=== PATIENT | female | born 1965 | race Caucasian/White ===

== ENCOUNTER → 2016-12-14 | Outpatient (CLI) | payer MEDICAID ==
--- NOTE | 2016-12-14 15:54 | US ---
EXAMINATION TYPE: US thyroid st tissue head/neck DATE OF EXAM: 12/14/2016 COMPARISON: NONE CLINICAL HISTORY: E04.1 Nodule. Patient states that during dentist exam, felt left palp. Labs are nor mal. GLAND SIZE: Right Lobe: 4.2 x 1.5 x 1.1 cm Overall Parenchyma: homogenous Left Lobe: 4.0 x 1.6 x 1.1 cm Overall Parenchyma: homogeneous Isthmus Thickness: 0.3 cm NODULES RIGHT: # of nodules measured on right: 1 1. 0.3 X 0.3 x 0.2 cm hypoechoic nodule at the lower pole with well-defined margins. This nodule i s taller than wide and shows . Prior size: No prior LEFT: # of nodules measured on left: 0 ISTHMUS: # of nodules measured in the isthmus: 0 Bilateral neck scanned, no evidence of lymphadenopathy. Hypoechoic oval lesion seen lateral to right CCA = 1.3 x 1.0 x 0.4 cm IMPRESSION: 1. Probable lymph node at the palpable region lateral to the right common carotid artery. Follow-up c an be performed. 2. Normal thyroid
== END | disposition home or self-care (01) ==
LOC: RADUSWWP 09:37
PROVIDERS: ATTEND Family Medicine
DX: E04.1 Nontoxic single thyroid nodule (principal)
CPT/HCPCS: 76536

== ENCOUNTER → 2017-07-29 | Outpatient (CLI) | payer MEDICAID ==
--- NOTE | 2017-07-29 11:58 | US ---
EXAMINATION TYPE: US thyroid st tissue head/neck DATE OF EXAM: 07/29/2017 COMPARISON: Prior thyroid ultrasound report December 14, 2016 CLINICAL HISTORY: E04.1 Thyroid nodule,. follow up from previous, lymph nodes felt GLAND SIZE: Right Lobe: 4.1 x 1.1 x 1.5 cm Overall Parenchyma: homogenous Left Lobe: 3.3 x 1.3 x 1.3 cm Overall Parenchyma: homogeneous Isthmus Thickness: 0.3 cm NODULES RIGHT: # of nodules measured on right: 1 1. 0.4 X 0.2 x 0.3 cm cystic nodule at the lower pole with well-defined margins. This nodule is wi arnulfo than tall and shows no intranodular vascularity. Prior size: 0.3 x 0.3 x 0.2 cm LEFT: # of nodules measured on left: 0 ISTHMUS: # of nodules measured in the isthmus: 0 Bilateral neck scanned, no evidence of lymphadenopathy. Prominent lymph nodes felt on the right. Patient states she always feels them for years. 3 sit right next to each other in lateral right neck with largest dimension of 1.3cm Technologist lozoya subcentimeter oval hypoechoic lesion probable lymph node right neck on initial hadley ges. Similar finding described in prior report. IMPRESSION: Thyroid gland remains normal in size and homogeneous in echotexture with stable tiny right thyroid no dule, no new greater than 1 cm solid or cystic nodules are seen.
--- NOTE | 2017-08-01 10:04 | MM ---
Reason for exam: screening (asymptomatic). Last mammogram was performed 1 year and 3 months ago. History: Patient is postmenopausal. Physical Findings: A clinical breast exam by your physician is recommended on an annual basis and results should be correlated with mammographic findings. MG 3D Screening Mammo W/Cad Bilateral CC and MLO view(s) were taken. Prior study comparison: May 07, 2016, bilateral MG 3d screening mammo w/cad. April 19, 2014, bilateral MG screening mammo w CAD. There are scattered fibroglandular densities. Finding: There are typically benign round, grouped/clustered and regional calcifications in both breasts. There is no discrete abnormality. ASSESSMENT: Benign, BI-RAD 2 RECOMMENDATION: Routine screening mammogram of both breasts in 1 year.
== END | disposition home or self-care (01) ==
LOC: RADUSWWP 08:15
PROVIDERS: ATTEND Family Medicine
DX: Z12.31 Encounter for screening mammogram for malignant neoplasm of breast (principal); E04.1 Nontoxic single thyroid nodule
CPT/HCPCS: 76536; 77063; 77067

== ENCOUNTER → 2017-11-02 | Outpatient (CLI) | payer MEDICAID ==
--- NOTE | 2017-11-02 21:36 | XR ---
EXAMINATION TYPE: XR lumbosacral spine min 4V DATE OF EXAM: 11/02/2017 COMPARISON: NONE HISTORY: 51-year-old female with lumbar pain more towards the right TECHNIQUE: 5 views FINDINGS: No pars interarticularis defect. Mild to moderate disc interspace narrowing at L3-L4, L4-L5, and L5- S1 with corresponding endplate spondylosis. Hypertrophic facet arthropathy throughout especially the lower lumbar spine. There is trace grade 1 retrolisthesis at L3-L4. Vertebral body heights are mainta ined. IMPRESSION: 1. No vertebral compression collapse. 2. Hypertrophic facet arthropathy especially in the lower lumbar spine with trace grade 1 retrolisthe sis at L3-L4. 3. Mild to moderate degenerative disc disease.
== END | disposition home or self-care (01) ==
LOC: RADXRMAIN 11:34
PROVIDERS: ATTEND Family Medicine
DX: M51.37 Other intervertebral disc degeneration, lumbosacral region (principal); M46.96 Unspecified inflammatory spondylopathy, lumbar region
CPT/HCPCS: 72110

== ENCOUNTER → 2017-11-29 | Outpatient (CLI) | payer MEDICAID ==
--- NOTE | 2017-11-29 12:38 | ECHOF ---
Referral Reason:Chest pain MEASUREMENTS -------- HEIGHT: 165.1 cm WEIGHT: 103.0 kg BP: IVSd: 1.3 cm (0.6 - 1.1) LVIDd: 3.5 cm (3.9 - 5.3) LVPWd: 1.1 cm (0.6 - 1.1) IVSs: 1.6 cm LVIDs: 1.9 cm LVPWs: 1.8 cm Ao Diam: 2.9 cm (2.0 - 3.7) AV Cusp: 1.7 cm (1.5 - 2.6) LA Diam: 2.5 cm (2.7 - 3.8) MV EXCURSION: 16.659 mm (> 18.000) MV EF SLOPE: 109 mm/s (70 - 150) EPSS: 1.0 cm MV E Tony: 0.98 m/s MV DecT: 183 ms MV A Tony: 0.63 m/s MV E/A Ratio: 1.56 RAP: 5.00 mmHg RVSP: 14.41 mmHg FINDINGS -------- Sinus rhythm. This was a technically good study. The left ventricular size is normal. There is borderline concentric left ventricular hypertrophy. Overall left ventricular systolic function is normal with, an EF between 55 - 60 %. The right ventricle is normal in size and function. The left atrium is normal in size. The right atrium is normal in size. The aortic valve is trileaflet, and appears structurally normal. No aortic stenosis or regurgitation. The mitral valve leaflets are mildly thickened. Mild mitral regurgitation is present. Mild tricuspid regurgitation present. The right ventricular systolic pressure, as measured by Doppl er, is 14.41mmHg. Pulmonic valve appears structurally normal. The aortic root size is normal. The pericardium is normal. CONCLUSIONS -------- 1. Sinus rhythm. 2. This was a technically good study. 3. The left ventricular size is normal. 4. There is borderline concentric left ventricular hypertrophy. 5. Overall left ventricular systolic function is normal with, an EF between 55 - 60 %. 6. The right ventricle is normal in size and function. 7. The left atrium is normal in size. 8. The right atrium is normal in size. 9. The aortic valve is trileaflet, and appears structurally normal. No aortic stenosis or regurgitati on. 10. The mitral valve leaflets are mildly thickened. 11. Mild mitral regurgitation is present. 12. Mild tricuspid regurgitation present. 13. The right ventricular systolic pressure, as measured by Doppler, is 14.41mmHg. 14. Pulmonic valve appears structurally normal. 15. The aortic root size is normal. 16. The pericardium is normal. PEELER OPERATOR: Hannah Judd RDCS
--- NOTE | 2017-11-29 12:49 | ECHOS ---
STRESS ECHOCARDIOGRAM DATE OF SERVICE: 11/29/2017 INDICATIONS: Chest pain. MEDICATIONS: BASELINE HEART RATE: 73 BASELINE BLOOD PRESSURE: 140/72 MAXIMUM HEART RATE: 160 MAXIMUM BLOOD PRESSURE: 211/106 85% MPHR: 143 100% MPHR: 168 METS: 7 MAXIMUM STAGE REACHED: II TOTAL EXERCISE TIME: 6 minutes CLINICAL INFORMATION: Baseline EKG shows sinus rhythm, normal axis, normal intervals. Patient exercised on Aston protocol for a total of 6 minutes, achieving 7 METs, 95% of predicted maximal heart rate without chest pain or diagnostic ST-segment depression. Baseline echo shows normal left ventricular size, wall motion, systolic function. Postexercise, there is normal hyperdynamic response of all segments of myocardium noted. CONCLUSIONS: 1. Limited exercise tolerance. 2. Negative stress test by EKG criteria. 3. Negative stress echo. MMODL / IJN: [id number] /
== END | disposition home or self-care (01) ==
LOC: RADNMMAIN 09:22
PROVIDERS: ATTEND Internal Medicine Interventional Cardiology
DX: R07.9 Chest pain, unspecified (principal)
CPT/HCPCS: 93306; 93351

== ENCOUNTER → 2018-02-07 | Outpatient (CLI) | payer MEDICAID ==
--- NOTE | 2018-02-07 14:56 | US ---
EXAMINATION TYPE: US thyroid st tissue head/neck DATE OF EXAM: 02/07/2018 COMPARISON: US CLINICAL HISTORY: E04.1 thyroid nodule. F/U GLAND SIZE: Right Lobe: 4.4 x 1.5 x 1.7 cm Overall Parenchyma: homogenous Left Lobe: 4.1 x 1.0 x 1.4 cm Overall Parenchyma: homogeneous Isthmus Thickness: 0.4 cm NODULES RIGHT: # of nodules measured on right: 1 1. 0.3 X 0.2 x 0.3 cm hypoechoic nodule at the lower pole with well-defined margins; This nodule i s wider than tall and shows no intranodular vascularity. Prior size: 0.4 x 0.2 x 0.3 cm Bilateral neck scanned, no evidence of lymphadenopathy. Probable lymph node right lateral neck as see n on previous exams, unchanged with largest measurement at 1.3cm. Unchanged thyroid nodule on right. IMPRESSION: 1. Subcentimeter right lobe thyroid nodule. 2. Right neck lymphadenopathy, stable.
== END ==
LOC: RADUSWWP 07:27
PROVIDERS: ATTEND Family Medicine
DX: E04.1 Nontoxic single thyroid nodule (principal); R59.0 Localized enlarged lymph nodes
CPT/HCPCS: 76536

== ENCOUNTER → 2018-02-24 | Outpatient (CLI) | payer MEDICAID ==
--- NOTE | 2018-02-24 19:59 | MR ---
EXAMINATION TYPE: MR lspine/sacrum wo con DATE OF EXAM: 02/24/2018 COMPARISON: Plain film 11/02/2017, prior lumbar MRI 10/21/2011 HISTORY: Low back pain / Foot drop TECHNIQUE: Multiplanar, multisequence imaging of the lumbar spine is performed without IV contrast. FINDINGS: Using the number scheme of the prior exams, the lumbosacral juncture is marked at L5-S1, th ere are however 6 nonrib-bearing lumbar segments. Correlate with plain film prior to any intervention . Sagittal images of the lumbar spine show vertebral body heights and alignment to appear satisfactory. The intervertebral discs demonstrate normal heights and hydration. The conus medullaris is normal i n position and signal. The bone marrow signal intensity is within normal limits. Axial images show no significant interval change. There is no significant foraminal encroachment or s ignificant spinal stenosis. There is multilevel facet arthropathy as on prior exam. Broad-based poste rior disc bulges are stable. There is a mild spinal curvature. Hemangiomas are present in multiple ve rtebral bodies. IMPRESSION: Stable mild degenerative disc disease. Additional findings above. Multilevel facet arthro tani greatest at the lumbosacral junction and level immediately cephalad.. Correlate with plain film prior to any intervention.
== END | disposition home or self-care (01) ==
LOC: RADMRIMAIN 06:04
PROVIDERS: ATTEND Family Medicine
DX: M51.27 Other intervertebral disc displacement, lumbosacral region (principal); M51.37 Other intervertebral disc degeneration, lumbosacral region; M48.8X7 Other specified spondylopathies, lumbosacral region; D18.09 Hemangioma of other sites
CPT/HCPCS: 72148; 72195

== ENCOUNTER → 2018-02-25 | Outpatient (CLI) | payer MEDICAID ==
--- NOTE | 2018-02-25 14:46 | MR ---
EXAMINATION TYPE: MR cervical spine wo con DATE OF EXAM: 02/25/2018 COMPARISON: Previous cervical MRI dated 11/06/2010 HISTORY: Neck pain, stiffness, hx fall/disc herniation TECHNIQUE: Multiplanar, multisequence images of the cervical spine were acquired. C2-C3: No evidence for degenerative disc disease. No disc bulge/herniation or protrusion. No Canal stenosis. Foramina are patent bilaterally. C3-C4: Posterior extension endplate disc complex causes minimal anterior mass effect on the thecal sa c. Lateral extension causes some minimal foraminal encroachment, no significant spinal stenosis. C4-C5: Posterior extension of endplate disc complex causes minimal anterior mass effect on the thecal sac, small central posterior disc protrusion is noted. Lateral extension of endplate disc complex en croaches minimally on the foramina. C5-C6: Posterior extension of endplate disc complex causes mild anterior mass effect on the thecal sa c, no significant central stenosis. Lateral extension of endplate disc complex causes foraminal encro achment bilaterally. C6-C7: Small posterior disc bulge causes slight anterior mass effect on the thecal sac. No significan t foraminal encroachment. C7-T1: No evidence for degenerative disc disease. No disc bulge/herniation or protrusion. No Canal stenosis. Foramina are patent bilaterally. Cervical segments are intact. There is normal alignment. Cervical spinal cord is of normal signal. Craniovertebral junction relationships are within normal limits. Findings are similar to prior exam . There is mild spondylosis and endplate discogenic marrow signal change, loss of disc height and sig nal at intervertebral levels is compatible with disc desiccation and degenerative disc disease. IMPRESSION: Mild degenerative disc disease similar to prior exam.
== END | disposition home or self-care (01) ==
LOC: RADMRIMAIN 12:41
PROVIDERS: ATTEND Family Medicine
DX: M50.30 Other cervical disc degeneration, unspecified cervical region (principal)
CPT/HCPCS: 72141

== ENCOUNTER 2018-08-01 10:00 | Emergency (ER) | payer MEDICAID, OTHER ==
[2018-08-01 10:11] VITALS: BP 162/84; PULSE 81; RESP 18; TEMP 98.1
[2018-08-01] MEDS ORDERED: ACETAMINOPHEN TAB 325 MG TAB PO STA (10:49)
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
== END 2018-08-01 11:42 | disposition home or self-care (01) ==
LOC: EC 10:00
DX: M54.2 Cervicalgia (principal); K21.9 Gastro-esophageal reflux disease without esophagitis; Z79.899 Other long term (current) drug therapy; Z88.6 Allergy status to analgesic agent; Z87.891 Personal history of nicotine dependence; Y04.0XXA Assault by unarmed brawl or fight, initial encounter; Y92.69 Other specified industrial and construction area as the place of occurrence of the external cause; Y99.0 Civilian activity done for income or pay
CPT/HCPCS: 72125; 99284

== ENCOUNTER → 2018-08-14 | Outpatient (CLI) | payer MEDICAID ==
--- NOTE | 2018-08-15 10:34 | MM ---
Reason for exam: screening (asymptomatic). Last mammogram was performed 1 year and 1 month ago. History: Patient is postmenopausal. Physical Findings: A clinical breast exam by your physician is recommended on an annual basis and results should be correlated with mammographic findings. MG 3D Screening Mammo W/Cad Bilateral CC and MLO view(s) were taken. Prior study comparison: July 29, 2017, bilateral MG 3d screening mammo w/cad. May 07, 2016, bilateral MG 3d screening mammo w/cad. The breast tissue is heterogeneously dense. This may lower the sensitivity of mammography. There are benign appearing round calcifications bilaterally. There is no discrete abnormality. ASSESSMENT: Benign, BI-RAD 2 RECOMMENDATION: Routine screening mammogram of both breasts in 1 year. Manage on a clinical basis with regard to left itchy breast.
== END | disposition home or self-care (01) ==
LOC: RADMAMWWP 09:26
PROVIDERS: ATTEND Family Medicine
DX: Z12.31 Encounter for screening mammogram for malignant neoplasm of breast (principal)
CPT/HCPCS: 77063; 77067

== ENCOUNTER → 2020-01-10 | Outpatient (CLI) | payer MEDICAID ==
--- NOTE | 2020-01-10 13:46 | MM ---
Reason for exam: screening (asymptomatic). Last mammogram was performed 1 year and 5 months ago. History: Patient is postmenopausal. Physical Findings: A clinical breast exam by your physician is recommended on an annual basis and results should be correlated with mammographic findings. MG 3D Screening Mammo W/Cad Bilateral CC and MLO view(s) were taken. Prior study comparison: August 14, 2018, bilateral MG 3d screening mammo w/cad. July 29, 2017, bilateral MG 3d screening mammo w/cad. There are scattered fibroglandular densities. There is no discrete abnormality. No significant changes when compared with prior studies. ASSESSMENT: Negative, BI-RAD 1 RECOMMENDATION: Routine screening mammogram of both breasts in 1 year.
== END | disposition home or self-care (01) ==
LOC: RADMAMWWP 07:54
PROVIDERS: ATTEND Family Medicine
DX: Z12.31 Encounter for screening mammogram for malignant neoplasm of breast (principal)
CPT/HCPCS: 77063; 77067

== ENCOUNTER 2020-07-20 15:02 | Observation (INO) | payer MEDICAID ==
[2020-07-20] MEDS ORDERED: ONDANSETRON 4 MG/2 ML VIAL IVP STA (15:38)
--- NOTE | 2020-07-20 16:01 | ED ---
Chest Pain HPI - General Chief Complaint: Chest Pain Stated Complaint: Chest Pain Time Seen by Provider: 07/20/20 15:20 Source: patient Mode of arrival: wheelchair Limitations: no limitations - History of Present Illness Initial Comments: This patient is a 54-year-old woman presenting to be evaluated for a constellation of symptoms that came on this afternoon. The patient relates that approximately 2-3 hours ago, while she was sitting on her couch playing in computer game, she noticed that she was becoming nauseated. She then also started to experience some substernal chest pain. When this did not resolve promptly she came to be evaluated. There was no dyspnea, diaphoresis, palpitations or other anginal type symptoms. MD Complaint: chest pain Onset/Timin -: hour(s) Onset: during rest Pain Location: substernal Pain Radiation: none Severity: mild Quality: dull Consistency: constant Improves With: nothing Worsens With: nothing Anginal Symptoms: nausea Treatments Prior to Arrival: none - Related Data Home Medications Medication Instructions Recorded Confirmed Famotidine 40 mg PO 04/20/16 08/01/18 Loratadine [Claritin] 10 mg PO 04/20/16 08/01/18 Magnesium Oxide [Gray] 500 mg PO HS 11/26/17 08/01/18 Milk Thistle 1000mg 1,000 mg PO 11/26/17 08/01/18 Potassium 99 mg PO 11/26/17 08/01/18 Cholecalciferol [Vitamin D3] 5,000 unit PO Q48H 08/01/18 08/01/18 Docusate [Colace] 200 mg PO 08/01/18 08/01/18 Renew Probiotic For Women 1 cap PO 08/01/18 08/01/18 Allergies Allergy/AdvReac Type Severity Reaction Status Date / Time ibuprofen Allergy Unknown Verified 07/20/20 15:11 naproxen Allergy Unknown Verified 07/20/20 15:11 NSAIDS (Non-Steroidal Allergy Unknown Verified 07/20/20 15:11 Anti-Inflamma Review of Systems ROS Statement: Those systems with pertinent positive or pertinent negative responses have been documented in the HPI. ROS Other: All systems not noted in ROS Statement are negative. Constitutional: Denies: fever, chills Respiratory: Denies: cough, dyspnea Cardiovascular: Reports: chest pain. Denies: palpitations, orthopnea, edema, syncope Gastrointestinal: Reports: nausea. Denies: abdominal pain, vomiting, diarrhea, constipation, hematemesis, melena Genitourinary: Denies: dysuria, hematuria Musculoskeletal: Denies: back pain Skin: Denies: rash Neurological: Denies: headache, weakness, numbness EKG Findings - EKG Results: EKG: interpreted by ERMD, sinus rhythm (With sinus arrhythmia, rate 95 bpm), normal axis, normal QRS, normal ST/T - Blocks, [place], Hypertrophy, ST Abn: Chamber hypertrophy or enlargement: only voltage criteria for left ventricular hypertrophy Past Medical History Past Medical History: GERD/Reflux Additional Past Medical History / Comment(s): Stress test negative last about 30yrs ago, admit in 2009 for similar symptoms/chest pressure workup was negative History of Any Multi-Drug Resistant Organisms: None Reported Past Surgical History: Hernia Repair, Hysterectomy, Orthopedic Surgery Past Anesthesia/Blood Transfusion Reactions: Previous Problems w/ Anesthesia Additional Past Anesthesia/Blood Transfusion Reaction / Comment(s): Slow coming out of anesthesia Past Psychological History: No Psychological Hx Reported Smoking Status: Former smoker Past Alcohol Use History: Occasional Past Drug Use History: None Reported - Past Family History Father Family Medical History: AFIB, CVA/TIA, Thyroid Disorder Additional Family Medical History / Comment(s): Father has passed r/t CVA Mother Family Medical History: CVA/TIA, Thyroid Disorder Additional Family Medical History / Comment(s): 3 TIA's Brother(s) Additional Family Medical History / Comment(s): Mitral valve prolapse surgery General Exam Limitations: no limitations General appearance: alert, in no apparent distress Head exam: Present: atraumatic, normocephalic Eye exam: Present: normal appearance. Absent: scleral icterus, conjunctival injection Neck exam: Present: normal inspection Respiratory exam: Present: normal lung sounds bilaterally. Absent: respiratory distress, wheezes, rales, rhonchi, stridor Cardiovascular Exam: Present: regular rate, normal rhythm, normal heart sounds. Absent: systolic murmur, diastolic murmur, rubs, gallop GI/Abdominal exam: Present: soft. Absent: distended, tenderness, guarding, rebound, rigid, mass, pulsatile mass Extremities exam: Present: normal inspection, normal capillary refill. Absent: pedal edema, calf tenderness Back exam: Present: normal inspection. Absent: CVA tenderness (R), CVA tenderness (L) Neurological exam: Present: alert Skin exam: Present: warm, dry, intact, normal color. Absent: rash Course Vital Signs 07/20/20 07/20/20 07/20/20 15:08 16:11 16:57 Temperature 97.9 F Pulse Rate 105 H 86 81 Respiratory 18 18 20 Rate Blood Pressure 156/87 145/76 135/65 O2 Sat by Pulse 100 97 99 Oximetry Disposition Clinical Impression: Chest pain Disposition: ADMITTED IP TO THIS HOSP Condition: Good Instructions (If sedation given, give patient instructions): Chest Pain (ED) Is patient prescribed a controlled substance at d/c from ED?: No Referrals: Alyssa Jackson MD [Primary Care Provider] - 1-2 days
[2020-07-20 16:03] LABS: Basophils # (A) 0.1 k/uL (0-0.2); Basophils % (A) 1 %; Eosinophils # (A) 0.1 k/uL (0-0.7); Eosinophils % (A) 2 %; HCT 42.2 % (34.0-46.0); HGB 14.2 gm/dL (11.4-16.0); Lymphocytes % (A) 26 %; MCH 28.8 pg (25.0-35.0); MCHC 33.7 g/dL (31.0-37.0); MCV 85.6 fL (80.0-100.0); Mean Platelet Volume 7.1; Monocytes # (A) 0.4 k/uL (0-1.0); Monocytes % (A) 5 %; Neutrophils # (A) 5.1 k/uL (1.3-7.7); Neutrophils % (A) 66 %; Platelet Count 272 k/uL (150-450); RBC 4.93 m/uL (3.80-5.40); RDW 12.7 % (11.5-15.5); WBC 7.8 k/uL (3.8-10.6)
[2020-07-20 16:07] LABS: Appearance,Urine Clear (Clear); Bacteria,Urine Rare /hpf; Bilirubin,Urine Negative (Negative); Blood,Urine Small (Negative); Color,Urine Light Yellow; Glucose,Urine (UA) Negative (Negative); Ketones,Urine Negative (Negative); Leukocyte Esterase,Urine Negative (Negative); Mucus,Urine Rare /hpf; Nitrite,Urine Negative (Negative); PH, Urine 5.5 (5.0-8.0); Protein,Urine Negative (Negative); RBC,Urine 2 /hpf (0-5); Specific Gravity,Urine 1.011 (1.001-1.035); Squamous Epithelial Cell,Urine <1 /hpf (0-4); Urobilinogen,Urine <2.0 mg/dL (<2.0); WBC,Urine 1 /hpf (0-5)
[2020-07-20 16:12] LABS: ALT 23 U/L (4-34); AST 23 U/L (14-36); African American GFR (CKD) >90 (>60 ml/min/1.73 sqM); Albumin 4.3 g/dL (3.5-5.0); Alkaline Phosphatase 54 U/L (38-126); Amylase 79 U/L (30-110); Anion Gap 6 mmol/L; Blood Urea Nitrogen 20 mg/dL (7-17); Calcium 9.8 mg/dL (8.4-10.2); Carbon Dioxide 28 mmol/L (22-30); Chloride 105 mmol/L (98-107); Glucose 122 mg/dL (74-99); Lipase 130 U/L (23-300); Non-African American GFR(CKD) >90 (>60 ml/min/1.73 sqM); Potassium 4.3 mmol/L (3.5-5.1); Sodium 139 mmol/L (137-145); Total Bilirubin 0.4 mg/dL (0.2-1.3); Total Protein 7.4 g/dL (6.3-8.2)
[2020-07-20 16:13] LABS: INR 0.9 (<1.2); Partial Thromboplastin Time 22.6 sec (22.0-30.0)
--- NOTE | 2020-07-20 16:50 | XR ---
EXAMINATION TYPE: XR chest 2V DATE OF EXAM: 07/20/2020 COMPARISON: 11/26/2017. HISTORY: Chest pain. TECHNIQUE: Frontal and lateral views of the chest are obtained. FINDINGS: There is no focal air space opacity, pleural effusion, or pneumothorax seen. The cardiac silhouette size is within normal limits. The osseous structures are intact. Colonic gaseous distent ion seen. IMPRESSION: No acute cardiopulmonary process.
[2020-07-20] MEDS ORDERED: NITROGLYCERIN SL TABS 0.4 MG TAB SUBLINGUAL PRN (17:12)
[2020-07-20] MEDS ORDERED: FAMOTIDINE 20 MG TAB PO SCH (21:00)
[2020-07-21] MEDS ORDERED: METOCLOPRAMIDE 5 MG/ML 2 ML VIAL IVP PRN (00:02)
[2020-07-21] MEDS ORDERED: METOCLOPRAMIDE 5 MG/ML 2 ML VIAL ONE (00:55)
[2020-07-21 05:31] LABS: Cholesterol 217 mg/dL (<200); HDL Cholesterol 97 mg/dL (40-60); LDL Cholesterol,Calculated 98 mg/dL (0-99); Triglycerides 111 mg/dL (<150)
[2020-07-21] MEDS ORDERED: DOBUTamine DRIP for NUC MED 500 MG in DEXTROSE/WATER 1 250ML.BAG IV PRN (08:27)
[2020-07-21 08:47] VITALS: BP 115/78; PULSE 71; RESP 16; TEMP 98
[2020-07-21] MEDS ORDERED: ASPIRIN 81 MG PO SCH (09:00)
[2020-07-21] MEDS ORDERED: ASPIRIN 325 MG TAB PO SCH (09:00)
--- NOTE | 2020-07-21 10:02 | P.CRDCN ---
History of Present Illness History of present illness: HISTORY OF PRESENTING ILLNESS This is a pleasant 54-year-old female past medical history significant for gastroesophageal reflux disease. He denies prior history of coronary artery disease and does not follow with a pad machine offbearer for any reason. We have been asked to see in consultation for chest pain. She states yesterday she started having symptoms of feeling lightheaded and shaky. She thought possibly her blood sugar was low which does happen to her from time to time. She ate some peanut butter to see if her symptoms would improve. Unfortunately her symptoms did not improve. She then started having discomfort in the chest described as a burning sensation with mild epigastric discomfort, nausea, diaphoresis and ongoing dizziness. She also felt significant palpitations. She states it felt extremely fast but regular. The symptoms persisted at home for about 2 hours with no improvement prompting her to come to the hospital for further evaluation. On arrival to the emergency department she was continuing to have palpitations and chest discomfort. She was given IV Zofran which did not relieve her symptoms. Later in the evening she was given Reglan which she felt as though did help somewhat. She woke up this morning feeling in her usual state of health with no further chest discomfort or nausea. DIAGNOSTICS EKG reveals sinus mechanism heart rate of 95 with poor R-wave progression. Telemetry tracings indicate persistent sinus mechanism with some bradycardia while sleeping with no acute arrhythmia. Chest xray negative for an acute cardiopulmonary process. Laboratory reviewed, CBC unremarkable, sodium 139, potassium 4.3, creatinine 0.7, magnesium 2.0, cardiac enzymes negative 3, LDL 88 and HDL 97. She takes no daily cardiac medications. In 2018 she underwent a stress echo where she exercised for 6 minutes and had no evidence of stress-induced ischemia. Echocardiogram obtained at that time revealed preserved LV systolic function with ejection fraction 55-60%. REVIEW OF SYSTEMS At the time of my exam: CONSTITUTIONAL: Denies fever or chills. CARDIOVASCULAR: Denies chest pain, shortness of breath, orthopnea, PND or palpitations. RESPIRATORY: Denies cough. GASTROINTESTINAL: Denies abdominal pain, diarrhea, constipation, nausea or vomit ing. MUSCULOSKELETAL: Denies myalgias. NEUROLOGIC: Denies numbness, tingling, headacbe or weakness. ENDOCRINE: Denies fatigue, weight change, polydipsia or polyurina. GENITOURINARY: Denies burning, hematuria or urgency with micturation. HEMATOLOGIC: Denies history of anemia or bleeding. PHYSICAL EXAMINATION Blood pressure 105/69 heart rate 86 afebrile and maintaining oxygen saturation on room air. CONSTITUTIONAL: No apparent distress. Obese. HEENT: Head is normocephalic. Pupils are equal, round. Sclerae anicteric. Mucous membranes of the mouth are moist. No JVD. No carotid bruit. CHEST EXAMINATION: Lungs are clear to auscultation. No chest wall tenderness is noted on palpation or with deep breathing. HEART EXAMINATION: Regular rate and rhythm. S1, S2 heard. No murmurs, gallops or rub. ABDOMEN: Soft, nontender. Positive bowel sounds. EXTREMITIES: 2+ peripheral pulses, no lower extremity edema and no calf tenderness. NEUROLOGIC EXAMINATION: Patient is awake, alert and oriented x3. ASSESSMENT Chest pain Palpitations Gastroesophageal reflux disease Morbid obesity, BMI 40 PLAN An acute coronary event has been ruled out. Check an ultrasound of the gallbladder to rule out significant disease. Obtain 2-D echocardiogram and Doppler study to assess cardiac structure and function. Perform dobutamine stress echocardiogram to assess for stress-induced cardiac ischemia. If stress test is normal she is stable from a cardiac perspective and can be discharged home. Thank you kindly for this consultation. Nurse Practitioner note has been reviewed, I agree with a documented findings and plan of care. Patient was seen and examined. Past Medical History Past Medical History: GERD/Reflux Additional Past Medical History / Comment(s): Stress test negative last about 30yrs ago, admit in 2009 for similar symptoms/chest pressure workup was negative History of Any Multi-Drug Resistant Organisms: None Reported Past Surgical History: Hernia Repair, Hysterectomy, Orthopedic Surgery Past Anesthesia/Blood Transfusion Reactions: Previous Problems w/ Anesthesia Additional Past Anesthesia/Blood Transfusion Reaction / Comment(s): Slow coming out of anesthesia Past Psychological History: No Psychological Hx Reported Smoking Status: Former smoker Past Alcohol Use History: Occasional Past Drug Use History: None Reported - Past Family History Father Family Medical History: AFIB, CVA/TIA, Thyroid Disorder Additional Family Medical History / Comment(s): Father has passed r/t CVA Mother Family Medical History: CVA/TIA, Thyroid Disorder Additional Family Medical History / Comment(s): 3 TIA's Brother(s) Additional Family Medical History / Comment(s): Mitral valve prolapse surgery Medications and Allergies Home Medications Medication Instructions Recorded Confirmed Type Famotidine 40 mg PO HS 04/20/16 07/20/20 History Loratadine [Claritin] 10 mg PO HS 04/20/16 07/20/20 History Cholecalciferol [Vitamin D3] 5,000 unit PO HS 08/01/18 07/20/20 History Albuterol Inhaler [Ventolin Hfa 2 puff INHALATION RT-QID PRN 07/20/20 07/20/20 History Inhaler] Aspirin EC [Ecotrin Low Dose] 81 mg PO HS 07/20/20 07/20/20 History Calcium Carbonate [Tums] 500 mg PO ONCE PRN 07/20/20 07/20/20 History Green Tea [place] Extract [Green Tea 150 mg PO HS 07/20/20 07/20/20 History Extract] Milk Thistle 150 mg PO HS 07/20/20 07/20/20 History Selenium 100 mcg PO HS 07/20/20 07/20/20 History Vitamin B-12 Oral Drops 1 drop PO HS 07/20/20 07/20/20 History Vitamin C W/Zinc 1 tab PO HS 07/20/20 07/20/20 History Allergies Allergy/AdvReac Type Severity Reaction Status Date / Time ibuprofen Allergy Rash/Hives Verified 07/20/20 17:34 naproxen Allergy Rash/Hives Verified 07/20/20 17:34 NSAIDS (Non-Steroidal Allergy Rash/Hives Verified 07/20/20 17:34 Anti-Inflamma Physical Exam Vitals: Vital Signs Temp Pulse Pulse Resp BP BP Pulse Ox 07/21/20 03:00 97.9 F 86 18 105/69 96 07/20/20 21:00 97.6 F 81 16 144/84 96 07/20/20 18:02 98.3 F 84 18 147/92 99 07/20/20 17:00 88 20 152/87 99 07/20/20 16:57 81 20 135/65 99 07/20/20 16:11 86 18 145/76 97 07/20/20 15:08 97.9 F 105 H 18 156/87 100 Intake and Output 07/20/20 07/21/20 07/21/20 22:59 06:59 14:59 Other: # Voids 3 0 Weight 111.13 kg Results 07/20/20 15:48 07/20/20 15:48 Cardiac Enzymes 07/20/20 07/20/20 07/20/20 Range/Units 15:48 15:48 18:47 AST 23 (14-36) U/L Troponin I <0.012 <0.012 (0.000-0.034) ng/mL 07/20/20 Range/Units 21:14 AST (14-36) U/L Troponin I <0.012 (0.000-0.034) ng/mL Coagulation 07/20/20 Range/Units 15:48 PT 10.0 (9.0-12.0) sec APTT 22.6 (22.0-30.0) sec Lipids 07/20/20 Range/Units 15:48 Triglycerides 111 (<150) mg/dL Cholesterol 217 H (<200) mg/dL HDL Cholesterol 97 H (40-60) mg/dL CBC 07/20/20 Range/Units 15:48 WBC 7.8 (3.8-10.6) k/uL RBC 4.93 (3.80-5.40) m/uL Hgb 14.2 (11.4-16.0) gm/dL Hct 42.2 (34.0-46.0) % Plt Count 272 (150-450) k/uL Comprehensive Metabolic Panel 07/20/20 Range/Units 15:48 Sodium 139 (137-145) mmol/L Potassium 4.3 (3.5-5.1) mmol/L Chloride 105 (98-107) mmol/L Carbon Dioxide 28 (22-30) mmol/L BUN 20 H (7-17) mg/dL Creatinine 0.70 (0.52-1.04) mg/dL Glucose 122 H (74-99) mg/dL Calcium 9.8 (8.4-10.2) mg/dL AST 23 (14-36) U/L ALT 23 (4-34) U/L Alkaline Phosphatase 54 (38-126) U/L Total Protein 7.4 (6.3-8.2) g/dL Albumin 4.3 (3.5-5.0) g/dL Current Medications Generic Name Dose Route Start Last Admin Trade Name Freq PRN Reason Stop Dose Admin Aspirin 81 mg 07/21/20 09:00 Aspirin 325 Mg Tab PO DAILY MICHELLE Famotidine 40 mg 07/20/20 21:00 07/20/20 21:11 Famotidine 20 Mg Tab PO 40 mg HS MICHELLE Administration Metoclopramide HCl 5 mg 07/21/20 00:02 Metoclopramide 5 Mg/Ml 2 Ml Vial IVP Q6HR PRN Nausea And Vomiting Nitroglycerin 0.4 mg 07/20/20 17:12 Nitroglycerin Sl Tabs 0.4 Mg Tab SUBLINGUAL Q5M PRN Chest Pain Sodium Chloride 10 ml 07/20/20 21:00 07/20/20 21:12 Sodium Chloride 0.9% Flush 10 Ml Syringe IV 10 ml BID MICHELLE Administration Intake and Output 07/20/20 07/21/20 07/21/20 22:59 06:59 14:59 Other: # Voids 3 0 Weight 111.13 kg 07/20/20 15:48 07/20/20 15:48
--- NOTE | 2020-07-21 10:25 | US ---
EXAMINATION TYPE: US gallbladder DATE OF EXAM: 07/21/2020 COMPARISON: None CLINICAL HISTORY: 54-year-old female nausea and heartburn x 2 days; hypoglycemia; Jackie Fundoplasty 2011; abdominal gas TECHNIQUE: Multiple sonographic images of the right upper quadrant are obtained. FINDINGS: EXAM MEASUREMENTS: Liver Length: 15.2 cm Gallbladder Wall: 0.2 cm CBD: 3.4 mm Right Kidney: 9.3 x 5.9 x 4.0 cm Pancreas: Only a small portion of the pancreatic neck and body are visualized. Remainder is obscured by bowel gas shadowing. Liver: Slightly echogenic. No focal lesion seen. Gallbladder: wnl Evidence for sonographic Seay's sign: no CBD: wnl Right Kidney: No hydronephrosis. IMPRESSION: 1. Slightly echogenic appearance to the liver could represent mild fatty infiltration. 2. No gallstones or biliary ductal dilatation.
[2020-07-21] MEDS ORDERED: METOPROLOL TARTRATE 5 MG/5 ML VIAL IVP ONE (10:28)
[2020-07-21] MEDS ORDERED: ATROPINE SULFATE 0.1 MG/ML 10ML SYRINGE ONE (10:28)
--- NOTE | 2020-07-21 12:00 | ECHOF ---
Referral Reason:cp MEASUREMENTS -------- HEIGHT: 165.1 cm WEIGHT: 111.1 kg BP: IVSd: 1.3 cm (0.6 - 1.1) LVIDd: 3.8 cm (3.9 - 5.3) LVPWd: 1.3 cm (0.6 - 1.1) IVSs: 1.6 cm LVIDs: 3.4 cm LVPWs: 1.3 cm LAESV Index (A-L): 17.94 ml/m Ao Diam: 2.9 cm (2.0 - 3.7) AV Cusp: 2.2 cm (1.5 - 2.6) MV EXCURSION: 18.221 mm (> 18.000) MV EF SLOPE: 89 mm/s (70 - 150) EPSS: 0.2 cm MV E Tony: 0.66 m/s MV DecT: 164 ms MV A Tony: 0.97 m/s MV E/A Ratio: 0.68 RAP: 5.00 mmHg RVSP: 37.62 mmHg FINDINGS -------- Sinus rhythm. This was a techncally difficult study with suboptimal views, , Lumason utilized for enhancement of im ages. The left ventricular size is normal. There is mild concentric left ventricular hypertrophy. Overa ll left ventricular systolic function is normal with, an EF between 55 - 60 %. The right ventricle is normal in size. Normal LA size by volume 22+/-6 ml/m2. The right atrial size is normal. The aortic valve is trileaflet, and appears structurally normal. No aortic stenosis or regurgitation. The mitral valve is normal. Mild mitral regurgitation is present. The tricuspid valve appears structurally normal. Mild tricuspid regurgitation present. Right vent ricular systolic pressure is normal at < 35 mmHg. There is no pulmonic regurgitation present. The aortic root size is normal. There is no pericardial effusion. CONCLUSIONS -------- 1. There is mild concentric left ventricular hypertrophy. 2. Overall left ventricular systolic function is normal with, an EF between 55 - 60 %. 3. Normal LA size by volume 22+/-6 ml/m2. 4. The aortic valve is trileaflet, and appears structurally normal. No aortic stenosis or regurgitati on. 5. Mild mitral regurgitation is present. 6. Mild tricuspid regurgitation present. 7. There is no pericardial effusion. BROADBAND ENGINEER: Esther James RDCS
--- NOTE | 2020-07-21 12:53 | ECHOS ---
STRESS ECHOCARDIOGRAM DOBUTAMINE STRESS ECHO LUMASON: 2 Vial INDICATIONS: Chest pain. MEDICATIONS: BASELINE HEART RATE: 80 BASELINE BLOOD PRESSURE: 135/75 MAXIMUM HEART RATE: 153 MAXIMUM BLOOD PRESSURE: 130/49 85% MPHR: 140 100% MPHR: 165 METS: MAXIMUM STAGE REACHED: TOTAL EXERCISE TIME: CLINICAL INFORMATION: Baseline rhythm is sinus mechanism, rate of 80, normal axis and intervals, normal electrocardiogram. Baseline blood pressure 135/75 mmHg. Patient received an infusion of dobutamine and subsequently 0.5 mg of atropine. Peak rate 153 beats per minute. Peak blood pressure 130/49 mmHg. Electrocardiograph monitoring revealed no evidence of diagnostic ischemic ST deviation. Baseline echocardiogram revealed normal wall motion. At peak infusion, there was normal wall motion augmentation with no hypokinesis or dyskinesis. CONCLUSION: 1. Normal electrocardiograph response to dobutamine infusion. 2. Normal stress echocardiogram with no evidence of stress-induced ischemia. MMODL / IJN: [id number] /
--- NOTE | 2020-07-21 18:45 | P.HPIM ---
History of Present Illness H&P Date: 07/21/20 Chief Complaint: Chest pain Verena Castellanos, is a 54-year-old female who presented to [facility] emergency room with a chief complaint of chest pain, patient describes a pressure sensation in the midsternal area that started about 3 hours prior to presentation and was accompanied by nausea otherwise patient denies any other symptoms there was no shortness of breath no vomiting no diaphoresis no palpitation and no radiation of the pain to the jaw or to the left arm. Patient was evaluated in emergency room vital examination on presentation revealed a temperature of 97.9 pulse 105 respiration 18 blood pressure 156/87 pulse ox 100% on room air, her white blood count was 7.8 hemoglobin 14.2 platelet count 272 BUN 20 creatinine 0.7 troponin less than 0.012 liver enzymes and amylase and lipase were within normal limits EKG done in the emergency room revealed evidence of normal sinus rhythm with poor R-wave progression in the anterior leads, chest x-ray done in the emergency room did not reveal any evidence of acute cardiopulmonary process, patient was admitted to 24-hour observation cardiology consultation was requested for evaluation of chest pain. Her past medical history is significant for history of gastroesophageal reflux disease, she was admitted to the hospital with a similar complaint of chest pain in November 2017 Past Medical History Past Medical History: GERD/Reflux Additional Past Medical History / Comment(s): Stress test negative last about 30yrs ago, admit in 2009 for similar symptoms/chest pressure workup was negative History of Any Multi-Drug Resistant Organisms: None Reported Past Surgical History: Hernia Repair, Hysterectomy, Orthopedic Surgery Past Anesthesia/Blood Transfusion Reactions: Previous Problems w/ Anesthesia Additional Past Anesthesia/Blood Transfusion Reaction / Comment(s): Slow coming out of anesthesia Past Psychological History: No Psychological Hx Reported Smoking Status: Former smoker Past Alcohol Use History: Occasional Past Drug Use History: None Reported - Past Family History Father Family Medical History: AFIB, CVA/TIA, Thyroid Disorder Additional Family Medical History / Comment(s): Father has passed r/t CVA Mother Family Medical History: CVA/TIA, Thyroid Disorder Additional Family Medical History / Comment(s): 3 TIA's Brother(s) Additional Family Medical History / Comment(s): Mitral valve prolapse surgery Medications and Allergies Home Medications Medication Instructions Recorded Confirmed Type Famotidine 40 mg PO HS 04/20/16 07/20/20 History Loratadine [Claritin] 10 mg PO HS 04/20/16 07/20/20 History Cholecalciferol [Vitamin D3 (25 5,000 unit PO HS 08/01/18 07/20/20 History Mcg = 1000 Iu)] Albuterol Inhaler [Ventolin Hfa 2 puff INHALATION RT-QID PRN 07/20/20 07/20/20 History Inhaler] Aspirin EC [Ecotrin Low Dose] 81 mg PO HS 07/20/20 07/20/20 History Calcium Carbonate [Tums] 500 mg PO ONCE PRN 07/20/20 07/20/20 History Green Tea [place] Extract [Green Tea 150 mg PO HS 07/20/20 07/20/20 History Extract] Milk Thistle 150 mg PO HS 07/20/20 07/20/20 History Selenium 100 mcg PO HS 07/20/20 07/20/20 History Vitamin B-12 Oral Drops 1 drop PO HS 07/20/20 07/20/20 History Vitamin C W/Zinc 1 tab PO HS 07/20/20 07/20/20 History Allergies Allergy/AdvReac Type Severity Reaction Status Date / Time ibuprofen Allergy Rash/Hives Verified 07/20/20 17:34 naproxen Allergy Rash/Hives Verified 07/20/20 17:34 NSAIDS (Non-Steroidal Allergy Rash/Hives Verified 07/20/20 17:34 Anti-Inflamma Physical Exam Vitals: Vital Signs Temp Pulse Pulse Resp BP BP Pulse Ox 07/21/20 08:46 98 F 71 16 115/78 96 07/21/20 03:00 97.9 F 86 18 105/69 96 07/20/20 21:00 97.6 F 81 16 144/84 96 07/20/20 18:02 98.3 F 84 18 147/92 99 07/20/20 17:00 88 20 152/87 99 07/20/20 16:57 81 20 135/65 99 07/20/20 16:11 86 18 145/76 97 07/20/20 15:08 97.9 F 105 H 18 156/87 100 Intake and Output 07/20/20 07/21/20 07/21/20 22:59 06:59 14:59 Other: # Voids 3 0 1 Weight 111.13 kg In general patient is alert and oriented 3 in no apparent distress HEENT head normocephalic and atraumatic Neck is supple no JVD no goiter no lymphadenopathy Chest exam reveals a few scattered rhonchi no wheezing Cardiac exam reveals regular heart sounds S1 and S2 no gallops no murmurs Abdomen is soft nontender no organomegaly was normal bowel sounds Extremity exam reveals no edema no cyanosis or clubbing Neurological examination reveals no gross focal deficits Results CBC & Chem 7: 07/20/20 15:48 07/20/20 15:48 Labs: Abnormal Lab Results - Last 24 Hours (Table) 07/20/20 07/20/20 07/20/20 Range/Units 15:48 15:48 15:51 BUN 20 H (7-17) mg/dL Glucose 122 H (74-99) mg/dL Cholesterol 217 H (<200) mg/dL HDL Cholesterol 97 H (40-60) mg/dL Urine Blood Small H (Negative) Urine Bacteria Rare H (None) /hpf Urine Mucus Rare H (None) /hpf Assessment and Plan Plan: 1. Episode of chest pain 2. Mild hyperlipidemia total cholesterol 217 3. Underlying history of gastroesophageal reflux disease 4. Negative Covid 19 testing Patient is admitted to medical floor cardiology consultation was requested Stress test was ordered and will be done on 07/21/2020 will follow closely
--- NOTE | 2020-07-21 18:48 | P.DS ---
Providers Date of admission: 07/20/20 17:12 Expected date of discharge: 07/21/20 Attending physician: Jonathan Zheng Consults: 07/20/20 17:12 Consult Physician Routine Consulting Provider: Sherice Martienz Consult Reason/Comments: chest pain Do you want consulting provider notified?: Yes Primary care physician: Alyssa Jackson Hospital Course: Diagnosis on discharge: 1. Episode of chest pain 2. Mild hyperlipidemia total cholesterol 217 3. Underlying history of gastroesophageal reflux disease 4. Negative Covid 19 testing Hospital course: Verena Castellanos, is a 54-year-old female who presented to [facility] emergency room with a chief complaint of chest pain, patient describes a pressure sensation in the midsternal area that started about 3 hours prior to presentation and was accompanied by nausea otherwise patient denies any other symptoms there was no shortness of breath no vomiting no diaphoresis no palpitation and no radiation of the pain to the jaw or to the left arm. Patient was evaluated in emergency room vital examination on presentation revealed a temperature of 97.9 pulse 105 respiration 18 blood pressure 156/87 pulse ox 100% on room air, her white blood count was 7.8 hemoglobin 14.2 platelet count 272 BUN 20 creatinine 0.7 troponin less than 0.012 liver enzymes and amylase and lipase were within normal limits EKG done in the emergency room revealed evidence of normal sinus rhythm with poor R-wave progression in the anterior leads, chest x-ray done in the emergency room did not reveal any evidence of acute cardiopulmonary process, patient was admitted to 24-hour observation cardiology consultation was requested for evaluation of chest pain. Her past medical history is significant for history of gastroesophageal reflux disease, she was admitted to the hospital with a similar complaint of chest pain in November 2017 On 07/21/2020 patient was seen and examined on the medical floor she is alert and oriented 3 in no apparent distress no new episodes of chest pain she denies any symptoms at this time there is no fever or chills no headache or dizziness no chest pain no shortness of breath no cough no nausea or vomiting no abdominal pain no diarrhea no blood in the stools and no urinary symptoms. Patient underwent a stress test today which was negative she was evaluated by cardiology and was cleared for discharge. Patient will be discharged home today she will follow-up with her primary care physician Dr. Jackson within one week Patient Condition at Discharge: Good Plan - Discharge Summary Discharge Rx Participant: No New Discharge Prescriptions: Continue Loratadine [Claritin] 10 mg PO HS Famotidine 40 mg PO HS Cholecalciferol [Vitamin D3 (25 Mcg = 1000 Iu)] 5,000 unit PO HS Vitamin C W/Zinc 1 tab PO HS Vitamin B-12 Oral Drops 1 drop PO HS Selenium 100 mcg PO HS Green Tea Blevins Extract [Green Tea Extract] 150 mg PO HS Calcium Carbonate [Tums] 500 mg PO ONCE PRN PRN Reason: Indigestion Aspirin EC [Ecotrin Low Dose] 81 mg PO HS Milk Thistle 150 mg PO HS Albuterol Inhaler [Ventolin Hfa Inhaler] 2 puff INHALATION RT-QID PRN PRN Reason: Shortness Of Breath Discharge Medication List Famotidine 40 mg PO HS 04/20/16 [History] Loratadine [Claritin] 10 mg PO HS 04/20/16 [History] Cholecalciferol [Vitamin D3 (25 Mcg = 1000 Iu)] 5,000 unit PO HS 08/01/18 [History] Albuterol Inhaler [Ventolin Hfa Inhaler] 2 puff INHALATION RT-QID PRN 07/20/20 [History] Aspirin EC [Ecotrin Low Dose] 81 mg PO HS 07/20/20 [History] Calcium Carbonate [Tums] 500 mg PO ONCE PRN 07/20/20 [History] Green Tea Blevins Extract [Green Tea Extract] 150 mg PO HS 07/20/20 [History] Milk Thistle 150 mg PO HS 07/20/20 [History] Selenium 100 mcg PO HS 07/20/20 [History] Vitamin B-12 Oral Drops 1 drop PO HS 07/20/20 [History] Vitamin C W/Zinc 1 tab PO HS 07/20/20 [History] Follow up Appointment(s)/Referral(s): Seda Santiago MD [STAFF PHYSICIAN] - 1 Week (Office will call you to schedule your follow up appointment per Jane) Alyssa Jackson MD [Primary Care Provider] - 07/23/20 11:15 am Patient Instructions/Handouts: Chest Pain (ED)
== END 2020-07-21 13:53 ==
LOC: EC 15:02 → 1SOBS 17:12
PROVIDERS: ADMIT Internal Medicine; ATTEND Internal Medicine
DX: R07.89 Other chest pain (principal); R11.0 Nausea; R10.13 Epigastric pain; R00.2 Palpitations; R00.1 Bradycardia, unspecified; R61 Generalized hyperhidrosis; R42 Dizziness and giddiness; E78.5 Hyperlipidemia, unspecified; K21.9 Gastro-esophageal reflux disease without esophagitis; I51.7 Cardiomegaly; E66.01 Morbid (severe) obesity due to excess calories; Z20.828 Contact with and (suspected) exposure to other viral communicable diseases; Z79.899 Other long term (current) drug therapy; Z88.6 Allergy status to analgesic agent; Z90.710 Acquired absence of both cervix and uterus; Z98.890 Other specified postprocedural states; Z91.89 Other specified personal risk factors, not elsewhere classified; Z87.891 Personal history of nicotine dependence; Z68.41 Body mass index [BMI] 40.0-44.9, adult; Z82.49 Family history of ischemic heart disease and other diseases of the circulatory system; Z82.3 Family history of stroke; Z83.49 Family history of other endocrine, nutritional and metabolic diseases
CPT/HCPCS: 93005 ×2; 96375; 96374; 99285; 36415; 93306; 93351; 80061; 80053; 82150; 83690; 83735; 84484; 85025; 85610; 85730; 81001; 87635; 71046; 76705; G0378 ×2; J2765; J2405; J0461; Q9950

== ENCOUNTER → 2021-04-01 | Outpatient (CLI) | payer MEDICAID ==
--- NOTE | 2021-04-02 12:17 | MM ---
Reason for exam: screening (asymptomatic). Last mammogram was performed 1 year and 3 months ago. History: Patient is postmenopausal. Physical Findings: A clinical breast exam by your physician is recommended on an annual basis and results should be correlated with mammographic findings. MG 3D Screening Mammo W/Cad Bilateral CC and MLO view(s) were taken. Prior study comparison: January 10, 2020, bilateral MG 3d screening mammo w/cad. August 14, 2018, bilateral MG 3d screening mammo w/cad. There are scattered fibroglandular densities. There is no discrete abnormality. No significant changes when compared with prior studies. ASSESSMENT: Negative, BI-RAD 1 RECOMMENDATION: Routine screening mammogram of both breasts in 1 year.
== END | disposition home or self-care (01) ==
LOC: RADMAMWWP 07:33
PROVIDERS: ATTEND Family Medicine
DX: Z12.31 Encounter for screening mammogram for malignant neoplasm of breast (principal)
CPT/HCPCS: 77063; 77067

== ENCOUNTER → 2021-05-18 | Outpatient (CLI) | payer MEDICAID ==
[2021-05-18 08:02] VITALS: BP 147/89; PULSE 84; RESP 18; TEMP 97.6
--- NOTE | 2021-05-18 08:08 | P.PAINCN ---
History of Present Illness - Reason for Consult Consult date: 05/18/21 - History of Present Illness This 55 years old female with a chronic history of severe low back pain, started more than 10 years ago, she denies any any initiating event, but that the intensity of the pain increased over the last several months, it is constant and increases with any activity, associated with numbness and tingling sensation from the back towards the lower extremity bilaterally, it's more prominent on the left side, she denies any fever or night sweats which denies any motor or sensory deficits, she feels occasional weakness in her lower extremity, tried chiropractics without any significant improvement of her pain, is not able to do physical therapy secondary to the intensity of the pain Past Medical History Past Medical History: GERD/Reflux, Osteoarthritis (OA) Additional Past Medical History / Comment(s): ALLERGIES, HX OF ALEK FUNDOPLASTY - OCCASIONAL GERD WITH NAUSEA., LOW BACK PAIN -HERNIATED AND BULDGING DISCS., BOUTTS OF VERTIGO & NAUSEA. History of Any Multi-Drug Resistant Organisms: None Reported Past Surgical History: Hernia Repair, Hysterectomy, Orthopedic Surgery Additional Past Surgical History / Comment(s): BABY TOE SURGERY (17 YRS OLD)., ALEK FUNDOPLASTY (2011)., Past Anesthesia/Blood Transfusion Reactions: No Reported Reaction, Motion Sickness Additional Past Anesthesia/Blood Transfusion Reaction / Comm: OCCASIONAL VERTIGO Past Psychological History: No Psychological Hx Reported Smoking Status: Former smoker Past Alcohol Use History: Daily Additional Past Alcohol Use History / Comment(s): QUIT SMOKING 1997, HX OF 1/2 PPD, STARTED SMOKING AGE 11. 1-2 GLASSES WINE DAILY. Past Drug Use History: Marijuana Additional Drug Use History / Comment(s): GUMMIES WITH CBD & THC . - Past Family History Father Family Medical History: AFIB, CVA/TIA, Thyroid Disorder Additional Family Medical History / Comment(s): Father has passed r/t CVA Mother Family Medical History: CVA/TIA, Thyroid Disorder Additional Family Medical History / Comment(s): 3 TIA's Brother(s) Additional Family Medical History / Comment(s): Mitral valve prolapse surgery Medications and Allergies Home Medications Medication Instructions Recorded Confirmed Type Famotidine 40 mg PO HS 04/20/16 05/18/21 History Loratadine [Claritin] 10 mg PO HS 04/20/16 05/18/21 History Cholecalciferol [Vitamin D3 (25 5,000 unit PO HS 08/01/18 05/18/21 History Mcg = 1000 Iu)] Albuterol Inhaler [Ventolin Hfa 2 puff INHALATION RT-QID PRN 07/20/20 05/18/21 History Inhaler] Aspirin EC [Ecotrin Low Dose] 81 mg PO HS 07/20/20 05/18/21 History Acetaminophen [Tylenol Arthritis] 1,300 mg PO DIRECTED 05/14/21 05/18/21 History L.acidoph,Paracasei, B.lactis 1 each PO DAILY 05/14/21 05/18/21 History [Probiotic] Milk Thistle 1,000 mcg PO DAILY 05/14/21 05/18/21 History ondansetron HCL [Zofran] 8 mg PO DIRECTED 05/14/21 05/18/21 History Allergies Allergy/AdvReac Type Severity Reaction Status Date / Time adhesive Allergy Unknown WELTS FROM Verified 05/18/21 07:46 ADHESIVE ON BANDAIDES adhesive tape Allergy Unknown WELTS Verified 05/18/21 07:46 ibuprofen Allergy Rash/Hives, Verified 05/18/21 07:46 dyspnea naproxen Allergy Rash/Hives, Verified 05/18/21 07:46 dyspnea NSAIDS (Non-Steroidal Allergy Rash/Hives, Verified 05/18/21 07:46 Anti-Inflamma dyspnea Physical Exam Physical Examinations : -Constitutiona : Cooperative , not in acute distress . -HEENT : nech : supple , no Lymphadenopathy , normal thyroid size . : eyes : no ptosis , no icterus, no photophobia . - neurologic : Cranial nerve II to XII intact , no focal neurological deffecit . -psychatric : alert , oriented X 3 , appropriate affect , intact judgment and insight . -Lymphatic : no Lymphadenopathy . - musculoskeltal : Lumber spine moter stegnth lower extremities ,thigh and legs 5/5 Right side , 5/5 Left side deep tendon reflexes : normal Knee Jerk , normal ankle Jerk lumber facet Loading Test =positive Right , positive Left Range of motion of the lumbar spine Flexion 30 degrees, extension 10 degrees strait leg raising test = positive at 30 degree left side and minutes at 60 on the right side Fabere test= positive Right , and positive LT . tenderness over the Sacroiliac joint on the Right , and Left sides Results Comments: Plan of the lumbar spine L3 4 bulging disc disease L4 5 bulging disc disease and bilateral foraminal stenosis and facet arthropathy L5-S1 bulging disc disease with coronary stenosis and facet joint arthropathy Assessment and Plan Plan: Assessment and plan=1-lumbar radiculopathy. 2-lumbar spinal stenosis. 3-Lumbar spondylosis with lumbar facet arthropathy without myelopathy. Patient will be good candidate to have lumbar epidural steroid injection at L4 5 Time with Patient: Greater than 30 PQRS Measure Charge Sheet Measure #130: Documentation of Current Meds in Medical Chart: Patient's medications documented in chart Measure #226: Tobacco Use: Screen & Cessation Intervention: Pt not a tobacco user Measure #111: Pneumonia Vaccination: Pneumococcal vaccine administered or previously received Measure #47: Advance Care Plan: Advance care planning discussed & documented, pt chose/unable to give Measure #412: Opioid Treatment Agreement: No documentation of signed opioid treatment agreement Measure #408: Opioid Therapy Follow-up Evaluation: Patient had NO f/u eval minimum every 3 months during opioid therapy Measure #317: Preventitive Care & Scrn High Bld Press & F/U: Pre-hypertensive or hypertensive BP documented, pt will f/u with PCP Measure #128: Body Mass Index (BMI) Screening & Follow-up: BMI documented ABOVE normal parameters - f/u documented Measure #131: Pain Assessment & Follow-up: Pain positive & plan documented, Follow-up scheduled Measure #431: Unhealthy Alcohol Use Preventative Care & Scrn: Patient not identified as an unhealthy alcohol user - Pain Location Lower Back Non-Pharmacological Interventions: Heat, Position/Reposition PQRS Narrative: Smoking Status Former smoker Pain Intensity [Lower Back] 8 Scale Used Numeric (1 - 10) Home Medications: Ambulatory Orders Famotidine 40 mg PO HS 04/20/16 Loratadine [Claritin] 10 mg PO HS 04/20/16 Cholecalciferol [Vitamin D3 (25 Mcg = 1000 Iu)] 5,000 unit PO HS 08/01/18 Albuterol Inhaler [Ventolin Hfa Inhaler] 2 puff INHALATION RT-QID PRN 07/20/20 Aspirin EC [Ecotrin Low Dose] 81 mg PO HS 07/20/20 Acetaminophen [Tylenol Arthritis] 1,300 mg PO DIRECTED 05/14/21 L.acidoph,Paracasei, B.lactis [Probiotic] 1 each PO DAILY 05/14/21 Milk Thistle 1,000 mcg PO DAILY 05/14/21 ondansetron HCL [Zofran] 8 mg PO DIRECTED 05/14/21
== END | disposition home or self-care (01) ==
LOC: PNWHC3 07:26
PROVIDERS: ATTEND Specialist
DX: M51.36 Other intervertebral disc degeneration, lumbar region (principal); M48.061 Spinal stenosis, lumbar region without neurogenic claudication; M46.96 Unspecified inflammatory spondylopathy, lumbar region; M47.26 Other spondylosis with radiculopathy, lumbar region
CPT/HCPCS: 99211

== ENCOUNTER 2021-06-11 07:33 | Day surgery (SDC) | payer MEDICAID ==
[2021-06-11 07:51] VITALS: TEMP 97.7
[2021-06-11] MEDS ORDERED: LACTATED RINGERS 1,000 ML IV SCH (08:00)
[2021-06-11] MEDS ORDERED: methylPREDNISolone ACETATE 40 MG/ML 1 ML VIAL ONE (08:07)
[2021-06-11] MEDS ORDERED: IOPAMIDOL M200 10 ML VIAL ONE (08:07)
--- NOTE | 2021-06-11 08:22 | P.PCN ---
Date of Procedure: 06/11/21 Procedure(s) Performed: PREOPERATIVE DIAGNOSIS: 1- Lumbar radiculopathy. 2-Lumbar spondylosis with Facet arthropathy without myelopathy. 3-lumbar spinal stenosis POSTOPERATIVE DIAGNOSIS: Same as preop diagnosis. PROCEDURE 1. Lumbar epidural steroid injection under fluoroscopic guidance at the L4-5 level. (Fluoroscopy imaging was available in radiology department) 2. Lumbar epidurogram. ANESTHESIA: Local with 1% lidocaine 3 ml . EBL: Minimal PROCEDURE INDICATION: The patient with low back pain and radiculitis symptoms unresponsive to conservative treatment. Fluoroscopy was used to optimize visualization of the needle placement and to maximize safety. PROCEDURE DESCRIPTION / TECHNIQUE: The patient was seen and identified in the preoperative area. Risks, benefits, complications including but not limited to infections ,bleeding ,allergic reaction to the medications ,nerve damage and not complete pain releife , and alternatives were discussed with the patient. The patient agreed to proceed with the procedure and signed the consent, and vital signs were stable. Patient was taken to the OR and time out was completed. The patient was placed in the prone position on procedure table and a pillow was placed under the abdomen to reduce lumbar lordosis. The lumbosacral area was prepped and draped in the usual sterile fashion.ere closely monitored during the procedure.. Vital signs was monitered during the entire procedure. Using anterior-posterior fluoroscopy, the L4-5 interlaminar space was identified and the skin over this site was marked and then infiltrated with 1% lidocaine subcutaneously. Subsequently, a 18-gauge 6 inches longTuohy epidural needle was inserted and advanced toward the epidural space using the ``Loss of resistance technique and guided by AP and lateral fluoroscopy. The correct needle position in the epidural space was verified with the injection of 2 mL of the water soluble contrast dye Isovue 200 contrast and observing an excellent epidurogram with the epidural spread of the dye, after negative aspiration for blood and CSF and in the absence of paresthesias. Again after negative aspiration, a 6 ml mixture containing 80 mg of Depo-medrol , and 2 ml of preservative free Normal Saline, and 2 ml of preservative free lidocaine 1% solution was injected and a washout of epidurogram was seen. Needle was withdrawn intact, skin was cleansed, and bandages were applied. COMPLICATIONS: None DISPOSITION / PLANS: The patient was placed in a supine position and transferred to the recovery area in a stable condition for observation. There was no evidence of lower extremity motor or sensory deficit after the procedure. Patient was discharged from the recovery room after meeting discharge criteria. Home discharge instructions were given to the patient by the staff. The patient was reexamined prior to discharge. The patient will schedule a follow up in the clinic in 2-4 weeks.
[2021-06-11 08:44] VITALS: BP 136/82; PULSE 76; RESP 16
--- NOTE | 2021-06-12 08:26 | FL ---
Fluoroscopy INDICATION: Pain FINDINGS: Fluoroscopy time: 13 seconds. Images obtained: 1. IMPRESSIONS: 1. Documentation of fluoroscopy.
== END 2021-06-11 08:54 | disposition home or self-care (01) ==
LOC: ORPAIN 07:33
PROVIDERS: ATTEND Specialist
DX: M47.26 Other spondylosis with radiculopathy, lumbar region (principal); M48.061 Spinal stenosis, lumbar region without neurogenic claudication; Z90.710 Acquired absence of both cervix and uterus
CPT/HCPCS: 62323; J1030; Q9966

== ENCOUNTER → 2021-06-18 | Outpatient (CLI) | payer MEDICAID, OTHER | END | disposition home or self-care (01) | LOC: LABWHC1 08:17 | PROVIDERS: ATTEND Emergency Medicine | DX: Z20.822 Contact with and (suspected) exposure to COVID-19 (principal) | CPT/HCPCS: 87635 ==

== ENCOUNTER → 2021-06-19 | Outpatient (CLI) | payer MEDICAID, OTHER | END | disposition home or self-care (01) | LOC: LABWHC1 08:08 | PROVIDERS: ATTEND Emergency Medicine | DX: U07.1 COVID-19 (principal) | CPT/HCPCS: 87635 ==

== ENCOUNTER 2021-11-12 06:01 | Day surgery (SDC) | payer MEDICAID ==
[2021-11-11 08:44] VITALS: BMI 41.5
[~2021-11-12 06:01] MED LIST: LACTATED RINGERS 1,000 ML IV SCH; LIDOCAINE 1% (10MG/ML) FOR IV START INTRADERMA PRN
[2021-11-12 06:29] VITALS: RESP 16; TEMP 97.8
[2021-11-12] MEDS ORDERED: IOPAMIDOL M200 10 ML VIAL ONE (06:49)
[2021-11-12] MEDS ORDERED: methylPREDNISolone ACETATE 40 MG/ML 1 ML VIAL ONE (06:49)
--- NOTE | 2021-11-12 07:08 | P.PCN ---
Date of Procedure: 11/12/21 Procedure(s) Performed: PREOPERATIVE DIAGNOSIS: 1- Lumbar radiculopathy. 2-Lumbar spondylosis with Facet arthropathy without myelopathy. 3-lumbar spinal stenosis POSTOPERATIVE DIAGNOSIS: Same as preop diagnosis. PROCEDURE 1. Lumbar epidural steroid injection under fluoroscopic guidance at the L4-5 level. (Fluoroscopy imaging was available in radiology department) 2. Lumbar epidurogram. ANESTHESIA: Local with 1% lidocaine 3 ml . EBL: Minimal PROCEDURE INDICATION: The patient with low back pain and radiculitis symptoms unresponsive to conservative treatment. Fluoroscopy was used to optimize visualization of the needle placement and to maximize safety. PROCEDURE DESCRIPTION / TECHNIQUE: The patient was seen and identified in the preoperative area. Risks, benefits, complications including but not limited to infections ,bleeding ,allergic reaction to the medications ,nerve damage and not complete pain releife , and alternatives were discussed with the patient. The patient agreed to proceed with the procedure and signed the consent, and vital signs were stable. Patient was taken to the OR and time out was completed. The patient was placed in the prone position on procedure table and a pillow was placed under the abdomen to reduce lumbar lordosis. The lumbosacral area was prepped and draped in the usual sterile fashion.ere closely monitored during the procedure.. Vital signs was monitered during the entire procedure. Using anterior-posterior fluoroscopy, the L4-5 interlaminar space was identified and the skin over this site was marked and then infiltrated with 1% lidocaine subcutaneously. Subsequently, a 18-gauge Tuohy epidural needle was inserted and advanced toward the epidural space using the ``Loss of resistance technique and guided by AP and lateral fluoroscopy. The correct needle position in the epidural space was verified with the injection of 2 mL of the water soluble contrast dye Isovue 200 contrast and observing an excellent epidurogram with the epidural spread of the dye, after negative aspiration for blood and CSF and in the absence of paresthesias. Again after negative aspiration, a 6 ml mixture containing 80 mg of Depo-medrol , and 2 ml of preservative free Normal Saline, and 2 ml of preservative free lidocaine 1% solution was injected and a washout of epidurogram was seen. Needle was withdrawn intact, skin was cleansed, and bandages were applied. COMPLICATIONS: None DISPOSITION / PLANS: The patient was placed in a supine position and transferred to the recovery area in a stable condition for observation. There was no evidence of lower extremity motor or sensory deficit after the procedure. Patient was discharged from the recovery room after meeting discharge criteria. Home discharge instructions were given to the patient by the staff. The patient was reexamined prior to discharge. The patient will schedule a follow up in the clinic in 2-4 weeks.
[2021-11-12 07:16] VITALS: BP 143/84; PULSE 72
--- NOTE | 2021-11-12 09:59 | FL ---
EXAMINATION TYPE: FL guided pain mgmt statistic DATE OF EXAM: 11/12/2021 CLINICAL HISTORY: Low back pain. TECHNIQUE: Fluoroscopy. COMPARISON: None. FINDINGS: Fluoroscopic guidance was provided during pain relief procedure performed by Dr. Felipe . A total of 4 seconds of fluoroscopic time was utilized during the procedure and 1 spot images are acquired. Single image acquired shows needle localization with contrast injection at L4-L5 level. IMPRESSION: As Above.
== END 2021-11-12 07:25 | disposition home or self-care (01) ==
LOC: ORPAIN 06:01
PROVIDERS: ATTEND Specialist
DX: M47.26 Other spondylosis with radiculopathy, lumbar region (principal); M48.061 Spinal stenosis, lumbar region without neurogenic claudication
CPT/HCPCS: 62323; J1030; Q9966; 99152

== ENCOUNTER → 2021-12-03 | Outpatient (CLI) | payer MEDICAID ==
--- NOTE | 2021-12-03 09:44 | P.PN ---
Subjective Progress Note Date: 12/03/21 Principal diagnosis: A 55 yr old female with a history of severe and chronic low back pain secondary to lumbar degenerative disc diseases and lumbar spondylosis with facet arthropathy presents today for evaluation s/p LESI L4-L5. She states she experienced 100% pain relief s/p procedure. Pain level is currently at 2/10 in intensity. Pain is achy sore s/p chiropractic adjustment today. Pain is provoked by weight bearing activity. Pain is alleviated with 12 sessions of PT of which she is currently in, massage therapy integrate with PT, medications (Tylenol OTC), topicals, heat, laying supine and rest. Interventional pain procedures completed include LESI L4-L5 x1 Patient is currently on Tylenol OTC Patient denies any side effects of the medication(s), denies excessive drowsiness or sleepiness, denies suicidal ideation and reports that the current pain medication is helping to control the pain and improve activities of daily living. Patient denies any motor or sensory deficits. Patient denies any fever or night sweats, denies any change in the bowel movements or urination. Physical Examination: -Constitutional: Cooperative. Not in acute distress . -HEENT: Neck is supple. No lymphadenopathy. No thyromegaly. Normal thyroid size. Eyes: No ptosis , no icterus, no photophobia. ENT: No auditory deficits. Normal oropharynx. No Thrush. - Respiratory: Chest clear to auscultations bilaterally. No wheezing. No rhonchi. - Cardiovascular: Regular rate and rhythm. S1 / S2 , no S3 , no S4. - Gastrointestinal: Abdomen soft no tenderness. Bowel sounds positive in all four quadrants. No organomegaly. - Genitourinary: Deferred. - Neurologic: Cranial nerve II to XII intact. No focal neurological deficits. - Psychatric: Alert & oriented x 3. Matching mood & appropriate affect. Judgment and insight intact. - Lymphatic: No Lymphadenopathy. - Musculoskeletal: Cervical spine: Muscle bulk/ tone/ strength in the bilateral upper extremities normal Vertebral body tenderness to palpation over Facet loading test positive Thoracic spine Muscle bulk / tone/ strength in the bilateral paraspinal muscles normal Vertebral body tender to palpation over Facet loading test positive Lumbar spine: Motor bulk/ tone/ strength lower extremities , thigh and legs : 5/5 Deep tendon reflexes : Normal Knee Jerk. Normal Ankle Jerk . Vertebral body tenderness to palpation over L4 with deep palpation Lumbar Facet Loading Test positive Straight Leg Raise: positive at 30 degrees right side/ left side Gaenslen's Test positive Sacral spine : Severe tenderness over the Sacroiliac joint: right side / left side Range of motion: Flexion of the lumbar spine <60 degrees Range of motion: Extension of the lumbar spine <20 degrees Gaenslen's Test positive Sergio's Test positive Jayden test: positive right side / left side Thigh Thrust Test Sacral Thrust Test Assessment and plan: Chronic low back pain secondary to lumbar degenerative disc disease , lumbar spondylosis with facet arthropathy without myelopathy Pt exhibited sufficient and substantial pain relief s/p procedure. She will follow her home pain remedy modalities for the time being and may return to our clinic on an as needed basis. All patient questions answered MAPS reviewed and it was appropriate. I have spent 31 minutes on patient care today. Dr Felipe was available by phone for the evaluation of this patient. The time was used to review the medical records including relevant urine studies and Prescription history (MAPs), review of the available imaging, evaluation and examination of the patient, coordination of care with the medical staff and if applicable referring physicians, as well as creation of the medical record PQRS Measure Charge Sheet PQRS Narrative: Smoking Status Former smoker Hx Alcohol Use (MH) No Home Medications: Ambulatory Orders Famotidine 40 mg PO HS 04/20/16 Loratadine [Claritin] 10 mg PO HS 04/20/16 Cholecalciferol [Vitamin D3 (25 Mcg = 1000 Iu)] 5,000 unit PO HS 08/01/18 Albuterol Inhaler [Ventolin Hfa Inhaler] 2 puff INHALATION RT-QID PRN 07/20/20 Aspirin EC [Ecotrin Low Dose] 81 mg PO HS 07/20/20 Acetaminophen [Tylenol Arthritis] 1,300 mg PO DIRECTED 05/14/21 L.acidoph,Paracasei, B.lactis [Probiotic] 1 each PO DAILY 05/14/21 Milk Thistle 1,000 mcg PO DAILY 05/14/21 ondansetron HCL [Zofran] 8 mg PO DIRECTED PRN 05/14/21 [place]-3 Fatty Acids/Fish Oil [Fish Oil 1,000 mg Softgel] 1 each PO DAILY 11/11/21
[2021-12-03 09:47] VITALS: BP 144/94; PULSE 66; RESP 18; TEMP 98
== END ==
LOC: PNWHC3 08:48
PROVIDERS: ATTEND Specialist
DX: M51.36 Other intervertebral disc degeneration, lumbar region (principal); M47.816 Spondylosis without myelopathy or radiculopathy, lumbar region; G89.29 Other chronic pain; Z87.891 Personal history of nicotine dependence; Z91.048 Other nonmedicinal substance allergy status; Z88.6 Allergy status to analgesic agent
CPT/HCPCS: 99211

== ENCOUNTER → 2022-04-01 | Outpatient (CLI) | payer MEDICAID ==
--- NOTE | 2022-04-02 07:55 | MM ---
Reason for Exam: Screening (asymptomatic). Last screening mammogram was performed 12 month(s) ago. Patient History: Menarche at age 15. First Full-Term at age 28. Left ovary removed at age 41. Right ovary removed at age 41. Hysterectomy at age 41. Postmenopausal. Risk Values: Apoorva 5 year model risk: 1.3%. NCI Lifetime model risk: 8.0%. Prior Study Comparison: 08/14/2018 Bilateral Screening Mammogram, [facility]. 01/10/2020 Bilateral Screening Mammogram, [facility]. 04/01/2021 Bilateral Screening Mammogram, [facility]. Tissue Density: There are scattered fibroglandular densities. Findings: Analyzed By CAD. Benign-appearing bilateral axillary lymph nodes are redemonstrated. There is no suspicious group of microcalcifications or new suspicious mass in either breast. Overall Assessment: Negative, BI-RAD 1 Management: Screening Mammogram of both breasts in 1 year. A clinical breast exam by your physician is recommended on an annual basis and results should be correlated with mammographic findings. Electronically signed and approved by: Dionisio Dawn M.D.
== END | disposition home or self-care (01) ==
LOC: RADMAMWWP 07:40
PROVIDERS: ATTEND Family Medicine
DX: Z12.31 Encounter for screening mammogram for malignant neoplasm of breast (principal)
CPT/HCPCS: 77063; 77067

== ENCOUNTER → 2024-04-26 | Outpatient (CLI) | payer OTHER ==
--- NOTE | 2024-04-26 11:50 | XR ---
EXAMINATION TYPE: XR shoulder complete RT DATE OF EXAM: 04/26/2024 CLINICAL HISTORY: pain TECHNIQUE: Three views of the right shoulder are obtained. COMPARISON: None FINDINGS: There is no acute fracture/dislocation evident. The acromioclavicular and glenohumeral jose martin int spaces appear within normal limits. The visualized ribs are intact and unremarkable. IMPRESSION: 1. There is no acute fracture or dislocation. ICD 10 NO FRACTURE, INITIAL EVALUATION [facility], , 04/26/2024 11:47 AM
== END | disposition home or self-care (01) ==
LOC: RADXRMAIN 10:39
PROVIDERS: ATTEND Emergency Medicine
DX: S46.911A Strain of unspecified muscle, fascia and tendon at shoulder and upper arm level, right arm, initial encounter (principal)

== ENCOUNTER → 2024-07-11 | Outpatient (CLI) | payer MEDICAID ==
--- NOTE | 2024-07-11 16:26 | CT ---
EXAMINATION TYPE: CT chest with contrast. DATE OF EXAM ORDERED: 07/11/2024 HISTORY: Chest discomfort for the past for 5 days. TECHNIQUE: Multiple axial images are obtained to the thorax.. The exam was performed following IV con trast administration. FINDINGS: There are 2 micronodules in the left lung. There is a 7.2 mm nodule in the right middle lobe. There a re 2 sub-6 mm pleural-based nodules in the right middle lobe and right lower lobe. There is mild inte rstitial scarring in the right lung base medially. The lungs are clear and there is no abnormal airspace consolidation. There is no mediastinal, hilar or axillary adenopathy. There is no pleural effusion, pleural thickening or pneumothorax. No focal osseous lesions are seen. Limited scans the upper abdomen reveals no gross abnormality IMPRESSION: 1. Bilateral pulmonary nodules as described above. There is a 7.3 mm nodule in the right middle lobe. 3 month follow-up CT of the thorax is recommended to confirm stability. 2. No acute cardiopulmonary disease. [facility], , 07/11/2024 4:23 PM
== END | disposition home or self-care (01) ==
LOC: RADCTMAIN 14:33
PROVIDERS: ATTEND Family Medicine
DX: J98.59 Other diseases of mediastinum, not elsewhere classified (principal); R91.8 Other nonspecific abnormal finding of lung field
CPT/HCPCS: 71270; Q9967

== ENCOUNTER → 2024-10-12 | Outpatient (CLI) | payer MEDICAID ==
--- NOTE | 2024-10-14 18:33 | CT ---
EXAMINATION TYPE: CT chest wo con DATE OF EXAM: 10/12/2024 7:21 AM COMPARISON: 07/11/2024 CLINICAL INDICATION: Female, 58 years old with history of R91.8 OTHER NONSPECIFIC ABNORMAL FINDING, TECHNIQUE: Axial images were obtained at 5 mm thick sections. Reconstructed images are reviewed on [employer] computer in the coronal plane. Contrast used: mL of , (none if empty) Oral contrast used: (none if empty) CT DLP: 699.54 mGycm, Automated exposure control for dose reduction was used. FINDINGS: Portion of the thyroid visualized is normal. Punctate nodules in the posterolateral left upper lung field. Series 4 image 23. This was present pre viously. There is indistinct increased density in the periphery of the right lung, series 4 image 27. Previous underlying punctate nodule is not identified. There are peripheral 0.5 and 0.6 cm densities in the right midlung. Series 4 image 31. These appear t o be present previously. There is a 0.5 cm nodule along the major fissure on the right. Series 4 image 33. Present previously without enlargement No enlarged mediastinal or hilar adenopathy is evident. The ascending aorta diameter at the level o f the main pulmonary artery is 3.3 cm. The main pulmonary artery diameter at the bifurcation is 2.7 cm. No significant coronary artery calcifications. Limited CT sections are obtained through the upper abdomen. Abdomen is unremarkable within the field- of-view IMPRESSION: 1. No enlarging suspicious nodules evident. 2. Stable appearing punctate and small nodules present bilaterally. Follow-up exam 3 months is recomm ended [facility], , 10/14/2024 6:31 PM
== END | disposition home or self-care (01) ==
LOC: RADCTMAIN 06:39
PROVIDERS: ATTEND Family Medicine
DX: R91.8 Other nonspecific abnormal finding of lung field (principal)
CPT/HCPCS: 71250

== ENCOUNTER → 2025-01-25 | Outpatient (CLI) | payer MEDICAID ==
--- NOTE | 2025-01-25 08:34 | MM ---
Reason for Exam: Screening (asymptomatic). Last mammogram was performed 1 year(s) and 4 month(s) ago. Patient History: Menarche at age 15. First Full-Term at age 28. Left ovary removed at age 41. Right ovary removed at age 41. Hysterectomy at age 41. Postmenopausal. Risk Values: Apoorva 5 year model risk: 1.5%. NCI Lifetime model risk: 7.4%. Prior Study Comparison: 01/10/2020 Bilateral Screening Mammogram, [facility]. 04/01/2021 Bilateral Screening Mammogram, [facility]. 04/01/2022 Bilateral MG 3D screening mammo w/cad, [facility]. 09/14/2023 Bilateral Screening Mammogram, Unknown. Tissue Density: There are scattered areas of fibroglandular density. Findings: Analyzed By CAD. Right breast: There is no suspicious group of microcalcifications or new suspicious mass. Left breast: There is no suspicious group of microcalcifications or new suspicious mass. Overall Assessment: Negative, BI-RAD 1 Management: Screening Mammogram of both breasts in [address] [facility] will attempt to contact patient to return for supplemental views and ultrasound if indicated. Patient should continue monthly self-breast exams. A clinical breast exam by your physician is recommended on an annual basis. This exam should not preclude additional follow-up of suspicious palpable abnormalities. Note on Apoorva scores and lifetime risk: 1. A Apoorva score greater than 3% is considered moderate risk. If this is the case, consider specialist referral to assess eligibility for a risk reducing agent. 2. If overall lifetime risk for the development of breast cancer is 20% or higher, the patient may qualify for future screening with alternating mammogram and breast MRI. [facility], , 01/25/2025 8:21 AM. Electronically signed and approved by: Ramone Ellsworth DO
[2025-01-25 10:55] LABS: ALT 21 U/L (8-44); AST 16 U/L (13-35); Albumin 4.1 g/dL (3.8-4.9); Albumin/Globulin Ratio 1.52 Ratio (1.60-3.17); Alkaline Phosphatase 48 U/L (41-126); Anion Gap 12.80 mmol/L (4.00-12.00); BUN/Creat Ratio 28.38 Ratio (12.00-20.00); Blood Urea Nitrogen 22.7 mg/dL (9.0-27.0); Calcium 9.2 mg/dL (8.7-10.3); Carbon Dioxide 27.2 mmol/L (21.6-31.8); Chloride 104 mmol/L (96-109); Cholesterol 189.00 mg/dL (0.00-200.00); Globulin 2.7 g/dL (1.6-3.3); Glucose 105 mg/dL (70-110); HDL Cholesterol 74.20 mg/dL (40.00-60.00); LDL Cholesterol,Calculated 96.2 mg/dL (0.0-131.0); Potassium 4.2 mmol/L (3.5-5.5); Sodium 144 mmol/L (135-145); T4, Free (Free Thyroxine) 1.15 ng/dL (0.80-1.80); Total Protein 6.8 g/dL (6.2-8.2); Triglycerides 92.90 mg/dL (0.00-149.00); VLDL Calculation 18.58 mg/dL (5.00-40.00)
[2025-01-25 15:22] LABS: Basophils # (A) 0.08 X 10*3/uL (0.00-0.10); Basophils % (A) 1.1 %; Eosinophils # (A) 0.22 X 10*3/uL (0.04-0.35); Eosinophils % (A) 3.0 %; HCT 42.7 % (37.2-46.3); HGB 13.6 g/dL (12.0-15.0); Immature Grans, Automated 0.40 %; Lymphocytes # (A) 2.39 X 10*3/uL (0.90-5.00); Lymphocytes % (A) 32.9 %; MCH 27.9 pg (27.0-32.0); MCHC 31.9 g/dL (32.0-37.0); MCV 87.7 FL (80.0-97.0); Monocytes # (A) 0.51 X 10*3/uL (0.20-1.00); Monocytes % (A) 7.0 %; NRBC Per 100 WBC 0 X 10*3/uL (0.00-0.01); Neutrophils # (A) 4.03 X 10*3/uL (1.80-7.70); Neutrophils % (A) 55.6 %; Platelet Count 290 X 10*3/uL (140-440); RBC 4.87 X 10*6/uL (4.10-5.20); RDW 12.9 % (11.5-14.5); WBC 7.26 X 10*3/uL (4.50-10.00)
--- NOTE | 2025-01-27 18:07 | CT ---
EXAMINATION TYPE: CT chest wo con DATE OF EXAM: 01/25/2025 7:22 AM COMPARISON: 10/12/2024, 07/11/2024 CLINICAL INDICATION: Female, 59 years old with history of R91.8 abnormal findings lung field; [facility], TECHNIQUE: CT of the chest without IV contrast. Coronal and sagittal reconstruction performed. CT DLP: 608 mGycm, Automated exposure control for dose reduction was used. FINDINGS: The heart is normal size without pericardial effusion. Aorta normal caliber with conventional arch vessel branching anatomy. No thoracic lymphadenopathy by CT size criteria. Some hazy dependent atelectasis posterior lower lungs. Mild diffuse bronchial wall thickening. No con solidation or pleural effusion. A few pulmonary nodules measuring up to 7 mm remain unchanged for 6 months now. An additional 12 - 18 month follow-up is recommended. Visualized upper abdomen shows postsurgical change of Jackie fundoplication. Moderate stool burden in the upper abdomen. Moderate degenerative disc disease with anterior endplate spondylosis lower thoracic spine. IMPRESSION: 1. A few pulmonary nodules measuring up to 7 mm, unchanged for 6 months. 18 month follow-up recommend ed to demonstrate 2 years of stability per Fleischner guidelines. 2. No acute pulmonary process. [facility], Workstation: [id number], 01/27/2025 6:04 PM
--- NOTE | 2025-01-27 18:09 | CT ---
EXAMINATION TYPE: CT heart w calcium score DATE OF EXAM: 01/25/2025 COMPARISON: None CLINICAL INDICATION: Female, 59 years old with history of X82.49 family hx heart disease; [facility], FAMILY HX OF HEART DISEASE TECHNIQUE: Prospective Gating was used. Slice thickness: 3mm. Density threshold (HU): 130, Pixel threshold: 3, Algorithm: discrete. CT DLP: 267.[address] CTDI: 15.5 mGy Automated exposure control for dose reduction was used. FINDINGS: CT CALCIUM SCORING Coronary calcium is a marker for plaque (fatty deposits) in a blood vessel or atherosclerosis (harden ing of the arteries). The presence and amount of calcium detected in a coronary artery by the CT sca n, indicates the presence and amount of atherosclerotic plaque. These calcium deposits appear years before the development of heart disease symptoms such as chest pain and shortness of breath. A calcium score is computed for each of the coronary arteries based upon the volume and density of th e calcium deposits. This can be referred to as your calcified plaque burden. It does not correspond directly to the percentage of narrowing in the artery but does correlate with the severity of the un derlying coronary atherosclerosis. RESULTS Region: LM Calcium Score ([place]): 0 Volume (mm3): 0 Mass (g): 0 Region: RCA Calcium Score ([place]): 0 Volume (mm3): 0 Mass (g): 0 Region: LAD Calcium Score ([place]): 0 Volume (mm3): 0 Mass (g): 0 Region: CX Calcium Score ([place]): 0 Volume (mm3): 0 Mass (g): 0 Region: PDA Calcium Score ([place]): 0 Volume (mm3): 0 Mass (g): 0 Total: Calcium Score ([place]): 0 Volume (mm3): 0 Mass (g): 0 INCIDENTAL: Postsurgical change of prior Jackie fundoplication. Visualized portions of the lungs show no gross ab normality. Please refer to dedicated CT chest of the same day for further details. IMPRESSION: Calcium Score: 0 Implication: No identifiable plaque. Risk of Coronary Artery Disease: Very low, generally less than 5%. CALCIUM SCORE IMPLICATION RISK OF C ORONARY ARTERY DISEASE 0 No identifiable plaque Very low, generally less than 5% 1-10 Minimal identifiable plaque Very unlikely, less than 10% 11-100 Definite, at least mild atherosclerotic plaque Mild or m inimal coronary narrowings likely 101-400 Definite, at least moderate atherosclerotic plaque Mild coronary ar katina disease highly likely, significant narrowing possible 401 or Higher Extensive atherosclerotic plaque High lik elihood of at least one significant coronary narrowing [facility], , 01/27/2025 6:06 PM
== END | disposition home or self-care (01) ==
LOC: RADCTMAIN 06:42
PROVIDERS: ATTEND Family Medicine
DX: Z12.31 Encounter for screening mammogram for malignant neoplasm of breast (principal); Z00.00 Encounter for general adult medical examination without abnormal findings; Z13.1 Encounter for screening for diabetes mellitus; R91.8 Other nonspecific abnormal finding of lung field; R92.323 Mammographic fibroglandular density, bilateral breasts; Z82.49 Family history of ischemic heart disease and other diseases of the circulatory system; Z78.0 Asymptomatic menopausal state; Z90.721 Acquired absence of ovaries, unilateral
CPT/HCPCS: 71250; 75571; 77063; 77067; 80053; 80061; 83036; 84439; 84443; 85025